=== PATIENT | male | born 1990 | race Two or more races ===

== ENCOUNTER 2023-04-23 23:17 | Inpatient (IN) | payer OTHER ==
[~2023-04-23] VITALS: Ht 160 cm; Wt 81.5 kg
[2023-04-23 23:20] VITALS: PULSE 142; RESP 16; O2SAT 95
[2023-04-23 23:30] VITALS: PULSE 141; RESP 18; O2SAT 95
[2023-04-23] MEDS ORDERED: levETIRAcetam 500 MG/5ML INJ IV ONE (23:33)
[2023-04-23] MEDS ORDERED: PROPOFOL 100 ML IV ONE (23:34)
[2023-04-23] MEDS ORDERED: LORazepam 2MG/ML-1ML VIAL ONE (23:34)
[2023-04-23] MEDS ORDERED: MIDAZOLAM DRIP 50 mg/50mL 50 ML IV ONE (23:35)
[2023-04-23] MEDS: MIDAZOLAM DRIP 50 mg/50mL 50 ML IV SCH (23:40)
[2023-04-23 23:45] LABS: Urine Bacteria FEW /hpf (None Seen); Urine Blood 2+ /uL (Negative); Urine Clarity Clear (Clear); Urine Color Colorless (Yellow); Urine Protein, UAD 1+ (Negative); Urine Specific Gravity 1.013 (1.001-1.035); Urine Urobilinogen Normal (Negative); Urine WBC 1 /hpf (0 - 3)
[2023-04-23] MEDS ORDERED: LORazepam 2MG/ML-1ML VIAL IV ONE (23:45)
[2023-04-23] MEDS ORDERED: PROPOFOL 10 MG/ML 20 ML IV ONE (23:45)
[2023-04-23] MEDS ORDERED: ROCURONIUM 10MG/ML 10ML VIAL IV ONE (23:45)
[2023-04-24] VITALS (68 sets, daily range): BP systolic 115–170; BP diastolic 71–128; PULSE 62–123; RESP 16–20; TEMP 97.9–100.6; O2SAT 70–100
[2023-04-24] MEDS ORDERED: PROPOFOL 100 ML IV ONE (00:26)
[2023-04-24] MEDS: PROPOFOL 100 ML IV SCH ×4 (00:30→22:23)
[2023-04-24] MEDS ORDERED: SODIUM BICARBONATE 8.4 % INJ 50ML VIAL IV ONE (00:45)
[2023-04-24 01:44] LABS: Hematocrit 48.9 % (41.0-53.0); Hemoglobin 15.1 g/dL (13.5-17.5); Mean Corpuscular Hemoglobin 27.8 pg (28.0-32.0); Mean Corpuscular Volume 89.6 fL (80.0-100.0); Red Blood Cells 5.45 10^6/uL (4.5-5.90); Red Cell Distribution Width 13.9 % (11.8-14.3)
[2023-04-24 01:54] LABS: Alanine Aminotransferase 38 U/L (7-40); Albumin 5.4 g/dL (3.2-4.8); Alkaline Phosphatase 73 U/L (46-116); Anion Gap 29.00001 (5-15); Aspartate Aminotransferase 25 U/L (13-40); BUN/Creatinine Ratio 8.6 (10.0-20.0); Bilirubin, Total 0.7 mg/dL (0.2-1.0); Blood Urea Nitrogen 14 mg/dL (9-23); Calcium 9.8 mg/dL (8.7-10.4); Chloride 100 mmol/L (98-107); Glucose 166 mg/dL (74-106); Potassium 3.9 mmol/L (3.5-5.1); Sodium 139 mmol/L (136-145); Total Protein 9.1 g/dL (5.7-8.2)
[2023-04-24 01:58] LABS: Basophils % (manual) 0 (0.0-2.0); Blast Cells 0; Monocytes % (manual) 0 (0-12); Promyelocytes % 0; Reactive Lymphocytes 0
[2023-04-24 02:13] LABS: Phenytoin (Dilantin) < 2.0 ug/mL (10-20)
[2023-04-24 02:14] LABS: Valproic Acid (Depakene) < 3.0 ug/mL (50-100)
[2023-04-24 02:19] LABS: Carbon Dioxide < 10 mmol/L (20-30)
[2023-04-24] MEDS: MIDAZOLAM DRIP 50 mg/50mL 50 ML IV SCH ×5 (02:45→23:13)
[2023-04-24] MEDS ORDERED: LACTATED RINGER'S 2,000 ML IV ONE (03:00)
[2023-04-24] MEDS ORDERED: LORazepam 2MG/ML-1ML VIAL IV PRN (05:00)
[2023-04-24] MEDS ORDERED: SODIUM CHLORIDE 0.9% 1,000 ML IV SCH (05:00)
[2023-04-24] MEDS ORDERED: NITROGLYCERIN 0.4 MG SL TAB SL PRN (05:00)
[2023-04-24] MEDS ORDERED: ACETAMINOPHEN 650 MG RECT SUPP PR PRN (05:00)
[2023-04-24] MEDS ORDERED: MORPHINE SULFATE INJ 2 MG/ml SYRG IV PRN (05:00)
[2023-04-24] MEDS ORDERED: VANCOMYCIN PER PHARMACY 0 MG IV SCH (05:00)
[2023-04-24] MEDS ORDERED: ONDANSETRON HCL 4 MG/2 ML VIAL IV PRN (05:00)
[2023-04-24] MEDS ORDERED: VANCOMYCIN 1GM/250ML 250 ML IV ONE (05:00)
[2023-04-24 05:35] LABS: Basophils # (auto) 0.1 10 ^3/uL (0-0.2); Basophils % (auto) 0.6 % (0.0-2.0); Eosinophils # (auto) 0 10 ^3/uL (0-0.8); Eosinophils % (auto) 0.3 % (0.0-7.0); Hematocrit 39.2 % (41.0-53.0); Hemoglobin 13.1 g/dL (13.5-17.5); Lymphocytes # (auto) 2.2 10 ^3/uL (0.4-5.4); Lymphocytes % (auto) 20.6 % (10.0-50.0); Mean Corpuscular Hemoglobin 27.8 pg (28.0-32.0); Mean Corpuscular Hgb Conc. 33.4 g/dL (32.0-36.0); Mean Corpuscular Volume 83.2 fL (80.0-100.0); Monocytes # (auto) 1.3 10 ^3/uL (0-1.3); Monocytes % (auto) 12.3 % (0.0-12.0); Neutrophils # (auto) 7.2 10 ^3/uL (1.6-8.6); Neutrophils % (auto) 66.2 % (37.0-80.0); Red Blood Cells 4.71 10^6/uL (4.5-5.90); Red Cell Distribution Width 13.5 % (11.8-14.3); White Blood Cell 10.8 10^3/uL (4.4-10.8)
[2023-04-24 05:49] LABS: Alanine Aminotransferase 30 U/L (7-40); Albumin 4.3 g/dL (3.2-4.8); Alkaline Phosphatase 52 U/L (46-116); Anion Gap 8 (5-15); Aspartate Aminotransferase 20 U/L (13-40); BUN/Creatinine Ratio 9.4 (10.0-20.0); Blood Urea Nitrogen 16 mg/dL (9-23); Calcium 8.9 mg/dL (8.7-10.4); Carbon Dioxide 28 mmol/L (20-30); Chloride 103 mmol/L (98-107); Glucose 170 mg/dL (74-106); Potassium 3.6 mmol/L (3.5-5.1); Sodium 139 mmol/L (136-145)
[2023-04-24 05:50] LABS: Bilirubin, Total 0.7 mg/dL (0.2-1.0); Total Protein 7.1 g/dL (5.7-8.2)
[2023-04-24 06:00] LABS: Band Neutrophils % (manual) 9; Eosinophils % (manual) 1 (0-7); Lymphocytes % (manual) 45 (10.0-50.0); Metamyelocytes % 6; Myelocytes % 7
[2023-04-24] MEDS ORDERED: cefTRIAXone 1GM/50ML D5W 50 ML IV SCH (06:00)
[2023-04-24 06:01] LABS: Platelet Estimate Adequate
[2023-04-24 07:27] LABS: Amphetamine Screen, Urine Neg (NEGATIVE); Barbiturate Scree,Urine Neg (NEGATIVE); Benzodiazephine Screen, Urine Neg (NEGATIVE); Cocaine Screen, Urine Neg (NEGATIVE)
[2023-04-24 07:28] LABS: Cannabinoid Screen, Urine Neg (NEGATIVE); Opiate Scree,Urine Neg (NEGATIVE); Phencyclidine Screen, Urine Neg (NEGATIVE)
[2023-04-24] MEDS ORDERED: POTASSIUM EFFERVESENT TAB 25 MEQ PO ONE (07:45)
[2023-04-24] MEDS: FAMOTIDINE (10MG/ML) 2ML VL IV SCH ×2 (07:51→22:24)
[2023-04-24] MEDS: HEPARIN SODIUM (PORCINE) 5000 UNITS/ML 1ML VIAL SC SCH ×2 (07:52→22:31)
[2023-04-24 10:48] LABS: INR 1.08 (0.9-1.15); Partial Thromboplastin Time 26.2 SEC (24.5-34.5); Prothrombin Time 11.3 sec (9.3-11.8)
[2023-04-24] MEDS: SODIUM CHLORIDE 0.9% 1,000 ML IV SCH ×2 (11:28→17:03)
[2023-04-24 11:30] LABS: Base Excess 0.2 mmol/L (-2.0-2.0)
[2023-04-24 11:58] LABS: Phosphorus 4.4 mg/dL (2.4-5.1)
[2023-04-24 12:07] LABS: Protein, Urine 61.5 mg/dL (0.0-11.9)
[2023-04-24 12:10] LABS: Creatinine, Urine 47.61 mg/dL (30.0-125.0); Urine Protein/Creatinine Ratio 1.29
[2023-04-24] MEDS ORDERED: lamoTRIgine 100 MG TAB NG ONE (12:15)
[2023-04-24] MEDS ORDERED: LIDOCAINE 1% (LOCAL ANESTH.) PF 5ml SDV ID ONE (15:00)
[2023-04-24] MEDS: ACETAMINOPHEN 650 mg PER 20.3 mL UD NG PRN (16:57)
[2023-04-24] MEDS: SODIUM CHLOR 0.9% PF (SALINE LOCK) 10ML VIAL/SYR IV SCH (22:24)
[2023-04-24] MEDS: lamoTRIgine 100 MG TAB NG SCH (22:28)
[2023-04-25] VITALS (108 sets, daily range): BP systolic 114–185; BP diastolic 77–128; PULSE 65–127; RESP 14–28; TEMP 97.9–100.2; O2SAT 94–100
[2023-04-25] MEDS: SODIUM CHLORIDE 0.9% 1,000 ML IV SCH ×3 (01:05→19:00)
[2023-04-25] MEDS: PROPOFOL 100 ML IV SCH ×5 (03:03→21:45)
[2023-04-25 04:16] LABS: Basophils # (auto) 0 10 ^3/uL (0-0.2); Basophils % (auto) 0.6 % (0.0-2.0); Eosinophils # (auto) 0.1 10 ^3/uL (0-0.8); Eosinophils % (auto) 1.9 % (0.0-7.0); Hematocrit 32.5 % (41.0-53.0); Hemoglobin 11.1 g/dL (13.5-17.5); Lymphocytes # (auto) 1.5 10 ^3/uL (0.4-5.4); Lymphocytes % (auto) 20.8 % (10.0-50.0); Mean Corpuscular Hemoglobin 28.8 pg (28.0-32.0); Mean Corpuscular Hgb Conc. 34.1 g/dL (32.0-36.0); Mean Corpuscular Volume 84.5 fL (80.0-100.0); Monocytes % (auto) 14.4 % (0.0-12.0); Neutrophils # (auto) 4.5 10 ^3/uL (1.6-8.6); Neutrophils % (auto) 62.3 % (37.0-80.0); Nucleated Red Blood Cells % 0.1 %; Red Blood Cells 3.85 10^6/uL (4.5-5.90); Red Cell Distribution Width 13.6 % (11.8-14.3); White Blood Cell 7.2 10^3/uL (4.4-10.8)
[2023-04-25 04:32] LABS: Alanine Aminotransferase 20 U/L (7-40); Albumin 2.8 g/dL (3.2-4.8); Alkaline Phosphatase 40 U/L (46-116); Anion Gap 7 (5-15); BUN/Creatinine Ratio 7.1 (10.0-20.0); Bilirubin, Total 0.7 mg/dL (0.2-1.0); Blood Urea Nitrogen 18 mg/dL (9-23); Calcium 6.4 mg/dL (8.7-10.4); Carbon Dioxide 21 mmol/L (20-30); Glucose 102 mg/dL (74-106); Magnesium 1.9 mg/dL (1.6-2.6); Potassium 3.1 mmol/L (3.5-5.1); Sodium 143 mmol/L (136-145); Total Protein 4.6 g/dL (5.7-8.2)
[2023-04-25 04:38] LABS: Aspartate Aminotransferase 29 U/L (13-40)
[2023-04-25 04:41] LABS: Chloride 115 mmol/L (98-107)
[2023-04-25] MEDS: MIDAZOLAM DRIP 50 mg/50mL 50 ML IV SCH ×4 (04:42→19:25)
[2023-04-25 06:56] LABS: Base Excess -1.7 mmol/L (-2.0-2.0)
[2023-04-25] MEDS ORDERED: POTASSIUM EFFERVESENT TAB 25 MEQ GT ONE (08:45)
[2023-04-25] MEDS ORDERED: LACTATED RINGER'S 1,000 ML IV ONE (08:45)
[2023-04-25] MEDS ORDERED: VANCOMYCIN 1GM/250ML 250 ML IV ONE (09:00)
[2023-04-25] MEDS ORDERED: VANCOMYCIN PER PHARMACY 0 MG IV SCH (09:00)
[2023-04-25] MEDS ORDERED: cefTRIAXone 1GM/50ML D5W 50 ML IV SCH (09:00)
[2023-04-25] MEDS: ACETAMINOPHEN 650 mg PER 20.3 mL UD NG PRN ×2 (09:01→18:04)
[2023-04-25] MEDS: LINEZOLID 600MG/300ML 300 ML IV SCH ×2 (10:25→23:01)
[2023-04-25] MEDS: lamoTRIgine 100 MG TAB NG SCH ×2 (10:25→22:16)
[2023-04-25] MEDS: FAMOTIDINE (10MG/ML) 2ML VL IV SCH ×2 (10:25→22:16)
[2023-04-25] MEDS: SODIUM CHLOR 0.9% PF (SALINE LOCK) 10ML VIAL/SYR IV SCH ×2 (10:25→22:16)
[2023-04-25] MEDS: HEPARIN SODIUM (PORCINE) 5000 UNITS/ML 1ML VIAL SC SCH ×2 (10:29→22:17)
[2023-04-25] MEDS: CEFEPIME 2GM/50ML NS 50 ML IV SCH ×2 (13:54→23:02)
[2023-04-25 16:24] LABS: Creatinine, Urine 36.07 mg/dL (30.0-125.0)
[2023-04-25 16:49] LABS: Urine Bacteria FEW /hpf (None Seen); Urine Blood Negative /uL (Negative); Urine Clarity Clear (Clear); Urine Color Colorless (Yellow); Urine Mucus FEW (None Seen); Urine Protein, UAD Negative (Negative); Urine Specific Gravity 1.008 (1.001-1.035); Urine Urobilinogen Normal (Negative); Urine WBC 18 /hpf (0 - 3)
[2023-04-25] MEDS: hydrALAZINE HCL 20 MG/ML VL IV PRN (17:12)
[2023-04-26] VITALS (108 sets, daily range): BP systolic 85–161; BP diastolic 47–117; PULSE 62–115; RESP 19–22; TEMP 97.7–99.5; O2SAT 95–100
[2023-04-26] MEDS: MIDAZOLAM DRIP 50 mg/50mL 50 ML IV SCH ×6 (00:09→23:22)
[2023-04-26] MEDS: SODIUM CHLORIDE 0.9% 1,000 ML IV SCH ×4 (02:25→20:51)
[2023-04-26] MEDS: PROPOFOL 100 ML IV SCH ×4 (04:22→20:37)
[2023-04-26 04:28] LABS: Basophils # (auto) 0.1 10 ^3/uL (0-0.2); Basophils % (auto) 0.9 % (0.0-2.0); Eosinophils # (auto) 0.2 10 ^3/uL (0-0.8); Eosinophils % (auto) 2.8 % (0.0-7.0); Hematocrit 37.1 % (41.0-53.0); Hemoglobin 12.6 g/dL (13.5-17.5); Lymphocytes % (auto) 26.1 % (10.0-50.0); Mean Corpuscular Hemoglobin 28.7 pg (28.0-32.0); Mean Corpuscular Volume 84.4 fL (80.0-100.0); Monocytes # (auto) 1.1 10 ^3/uL (0-1.3); Monocytes % (auto) 13.8 % (0.0-12.0); Neutrophils # (auto) 4.4 10 ^3/uL (1.6-8.6); Neutrophils % (auto) 56.4 % (37.0-80.0); Nucleated Red Blood Cells % 0.1 %; Red Cell Distribution Width 13.9 % (11.8-14.3); White Blood Cell 7.8 10^3/uL (4.4-10.8)
[2023-04-26 04:46] LABS: Alanine Aminotransferase 22 U/L (7-40); Albumin 3.4 g/dL (3.2-4.8); Alkaline Phosphatase 55 U/L (46-116); Anion Gap 8 (5-15); BUN/Creatinine Ratio 6.1 (10.0-20.0); Blood Urea Nitrogen 19 mg/dL (9-23); Calcium 7.9 mg/dL (8.7-10.4); Carbon Dioxide 22 mmol/L (20-30); Chloride 110 mmol/L (98-107); Glucose 151 mg/dL (74-106); Magnesium 2.6 mg/dL (1.6-2.6); Potassium 4.1 mmol/L (3.5-5.1); Sodium 140 mmol/L (136-145)
[2023-04-26 04:47] LABS: Bilirubin, Total 0.5 mg/dL (0.2-1.0); Total Protein 5.8 g/dL (5.7-8.2)
[2023-04-26 06:08] LABS: Aspartate Aminotransferase 35 U/L (13-40)
[2023-04-26] MEDS: CEFEPIME 2GM/50ML NS 50 ML IV SCH ×2 (06:25→13:45)
[2023-04-26 06:44] LABS: Base Excess -2.2 mmol/L (-2.0-2.0)
[2023-04-26] MEDS ORDERED: LORazepam 2MG/ML-1ML VIAL IV PRN (10:15)
[2023-04-26] MEDS: lamoTRIgine 100 MG TAB NG SCH ×2 (10:28→22:10)
[2023-04-26] MEDS: LINEZOLID 600MG/300ML 300 ML IV SCH ×2 (10:28→22:10)
[2023-04-26] MEDS: FAMOTIDINE (10MG/ML) 2ML VL IV SCH ×2 (10:28→22:10)
[2023-04-26] MEDS: hydrALAZINE HCL 20 MG/ML VL IV PRN (10:29)
[2023-04-26] MEDS: SODIUM CHLOR 0.9% PF (SALINE LOCK) 10ML VIAL/SYR IV SCH ×2 (10:30→22:10)
[2023-04-26] MEDS: HEPARIN SODIUM (PORCINE) 5000 UNITS/ML 1ML VIAL SC SCH ×2 (10:43→22:12)
[2023-04-26] MEDS ORDERED: FUROSEMIDE 100 MG/10ML VIAL IV ONE (11:00)
[2023-04-26] MEDS: ACETAMINOPHEN 650 mg PER 20.3 mL UD NG PRN (15:18)
[2023-04-26] MEDS: NOREPINEPHRINE 8 MG/250ML KIT 250 ML IV SCH (16:00)
[2023-04-27] VITALS (104 sets, daily range): BP systolic 92–161; BP diastolic 52–113; PULSE 59–90; RESP 20–25; TEMP 97.2–100; O2SAT 93–100
[2023-04-27] MEDS: hydrALAZINE HCL 20 MG/ML VL IV PRN (02:18)
[2023-04-27] MEDS: CEFEPIME 2GM/50ML NS 50 ML IV SCH ×2 (02:21→15:00)
[2023-04-27] MEDS: PROPOFOL 100 ML IV SCH ×4 (02:54→22:29)
[2023-04-27] MEDS: MIDAZOLAM DRIP 50 mg/50mL 50 ML IV SCH ×5 (03:43→19:41)
[2023-04-27 04:12] LABS: Basophils # (auto) 0.1 10 ^3/uL (0-0.2); Basophils % (auto) 0.9 % (0.0-2.0); Eosinophils # (auto) 0.3 10 ^3/uL (0-0.8); Eosinophils % (auto) 4.8 % (0.0-7.0); Hematocrit 39.9 % (41.0-53.0); Hemoglobin 13.4 g/dL (13.5-17.5); Lymphocytes # (auto) 1.8 10 ^3/uL (0.4-5.4); Lymphocytes % (auto) 28.7 % (10.0-50.0); Mean Corpuscular Hemoglobin 28.2 pg (28.0-32.0); Mean Corpuscular Hgb Conc. 33.5 g/dL (32.0-36.0); Mean Corpuscular Volume 84.3 fL (80.0-100.0); Monocytes # (auto) 0.8 10 ^3/uL (0-1.3); Monocytes % (auto) 12.9 % (0.0-12.0); Neutrophils # (auto) 3.4 10 ^3/uL (1.6-8.6); Neutrophils % (auto) 52.7 % (37.0-80.0); Nucleated Red Blood Cells % 0.1 %; Red Blood Cells 4.73 10^6/uL (4.5-5.90); White Blood Cell 6.4 10^3/uL (4.4-10.8)
[2023-04-27 04:35] LABS: Alanine Aminotransferase 20 U/L (7-40); Albumin 4.1 g/dL (3.2-4.8); Alkaline Phosphatase 69 U/L (46-116); Anion Gap 12 (5-15); BUN/Creatinine Ratio 6.9 (10.0-20.0); Bilirubin, Total 0.5 mg/dL (0.2-1.0); Blood Urea Nitrogen 19 mg/dL (9-23); Calcium 8.3 mg/dL (8.7-10.4); Carbon Dioxide 21 mmol/L (20-30); Chloride 108 mmol/L (98-107); Glucose 138 mg/dL (74-106); Magnesium 2.2 mg/dL (1.6-2.6); Potassium 3.4 mmol/L (3.5-5.1); Sodium 141 mmol/L (136-145); Total Protein 6.6 g/dL (5.7-8.2)
[2023-04-27 04:45] LABS: Aspartate Aminotransferase 23 U/L (13-40)
[2023-04-27] MEDS: SODIUM CHLORIDE 0.9% 1,000 ML IV SCH ×3 (04:48→22:13)
[2023-04-27 07:22] LABS: Base Excess -3.7 mmol/L (-2.0-2.0)
[2023-04-27] MEDS ORDERED: ONDANSETRON HCL 4 MG/2 ML VIAL IV PRN (08:45)
[2023-04-27] MEDS ORDERED: POTASSIUM CHL 20MEQ/100ML 100 ML IV ONE (08:45)
[2023-04-27] MEDS: FAMOTIDINE (10MG/ML) 2ML VL IV SCH ×2 (10:20→22:11)
[2023-04-27] MEDS: lamoTRIgine 100 MG TAB NG SCH ×2 (10:21→22:12)
[2023-04-27] MEDS: HEPARIN SODIUM (PORCINE) 5000 UNITS/ML 1ML VIAL SC SCH ×2 (10:29→22:30)
[2023-04-27] MEDS: SODIUM CHLOR 0.9% PF (SALINE LOCK) 10ML VIAL/SYR IV SCH ×2 (10:31→22:12)
[2023-04-27] MEDS: LINEZOLID 600MG/300ML 300 ML IV SCH ×2 (10:51→22:12)
[2023-04-27] MEDS: NOREPINEPHRINE 8 MG/250ML KIT 250 ML IV SCH (17:47)
[2023-04-27] MEDS: ACETAMINOPHEN 650 mg PER 20.3 mL UD NG PRN (22:21)
[2023-04-28] VITALS (107 sets, daily range): BP systolic 100–172; BP diastolic 58–119; PULSE 60–116; RESP 18–24; TEMP 97.9–99.7; O2SAT 91–100
[2023-04-28] MEDS: PROPOFOL 100 ML IV SCH ×6 (00:09→22:41)
[2023-04-28] MEDS: hydrALAZINE HCL 20 MG/ML VL IV PRN ×3 (01:50→20:09)
[2023-04-28] MEDS: CEFEPIME 2GM/50ML NS 50 ML IV SCH ×2 (02:43→12:12)
[2023-04-28] MEDS: MIDAZOLAM DRIP 50 mg/50mL 50 ML IV SCH ×5 (05:00→22:35)
[2023-04-28 05:15] LABS: Basophils # (auto) 0 10 ^3/uL (0-0.2); Basophils % (auto) 0.6 % (0.0-2.0); Eosinophils # (auto) 0.2 10 ^3/uL (0-0.8); Eosinophils % (auto) 3.2 % (0.0-7.0); Hematocrit 40.7 % (41.0-53.0); Hemoglobin 13.5 g/dL (13.5-17.5); Lymphocytes # (auto) 1.8 10 ^3/uL (0.4-5.4); Lymphocytes % (auto) 24.6 % (10.0-50.0); Mean Corpuscular Hemoglobin 27.8 pg (28.0-32.0); Mean Corpuscular Hgb Conc. 33.1 g/dL (32.0-36.0); Monocytes # (auto) 0.8 10 ^3/uL (0-1.3); Monocytes % (auto) 11.2 % (0.0-12.0); Neutrophils # (auto) 4.4 10 ^3/uL (1.6-8.6); Neutrophils % (auto) 60.4 % (37.0-80.0); Red Blood Cells 4.84 10^6/uL (4.5-5.90); Red Cell Distribution Width 14.1 % (11.8-14.3); White Blood Cell 7.3 10^3/uL (4.4-10.8)
[2023-04-28 05:32] LABS: Alanine Aminotransferase 24 U/L (7-40); Albumin 4.4 g/dL (3.2-4.8); Alkaline Phosphatase 100 U/L (46-116); Anion Gap 10 (5-15); Aspartate Aminotransferase 29 U/L (13-40); Bilirubin, Total 0.5 mg/dL (0.2-1.0); Blood Urea Nitrogen 17 mg/dL (9-23); Calcium 8.7 mg/dL (8.7-10.4); Carbon Dioxide 21 mmol/L (20-30); Chloride 114 mmol/L (98-107); Glucose 93 mg/dL (74-106); Magnesium 1.7 mg/dL (1.6-2.6); Sodium 145 mmol/L (136-145); Total Protein 7.1 g/dL (5.7-8.2)
[2023-04-28] MEDS: SODIUM CHLOR 0.9% PF (SALINE LOCK) 10ML VIAL/SYR IV SCH ×2 (07:18→22:24)
[2023-04-28 07:51] LABS: Base Excess -4.3 mmol/L (-2.0-2.0)
[2023-04-28] MEDS: SODIUM CHLORIDE 0.9% 1,000 ML IV SCH ×2 (08:16→17:36)
[2023-04-28] MEDS: FAMOTIDINE (10MG/ML) 2ML VL IV SCH (08:16)
[2023-04-28] MEDS: HEPARIN SODIUM (PORCINE) 5000 UNITS/ML 1ML VIAL SC SCH ×2 (08:17→22:26)
[2023-04-28] MEDS: lamoTRIgine 100 MG TAB NG SCH ×2 (08:17→22:25)
[2023-04-28] MEDS: LINEZOLID 600MG/300ML 300 ML IV SCH ×2 (08:59→22:25)
[2023-04-28] MEDS: NOREPINEPHRINE 8 MG/250ML KIT 250 ML IV SCH (10:11)
[2023-04-28] MEDS ORDERED: LAMO150T26 PO (16:40)
[2023-04-28] MEDS ORDERED: HYDR50TA69 PO (16:40)
[2023-04-28] MEDS ORDERED: PAR20T PO (16:40)
[2023-04-28] MEDS: ACETAMINOPHEN 650 mg PER 20.3 mL UD NG PRN (17:29)
[2023-04-29] VITALS (107 sets, daily range): BP systolic 107–179; BP diastolic 66–129; PULSE 52–138; RESP 14–29; TEMP 97.3–100.4; O2SAT 92–100
[2023-04-29] MEDS: fentaNYL Drip 2500mCg/250mlNS 250 ML IV SCH (00:45)
[2023-04-29] MEDS: MIDAZOLAM DRIP 50 mg/50mL 50 ML IV SCH ×3 (01:50→19:30)
[2023-04-29] MEDS: PROPOFOL 100 ML IV SCH ×5 (01:51→22:16)
[2023-04-29] MEDS: CEFEPIME 2GM/50ML NS 50 ML IV SCH ×2 (03:56→12:54)
[2023-04-29 04:38] LABS: Basophils # (auto) 0.1 10 ^3/uL (0-0.2); Basophils % (auto) 1.1 % (0.0-2.0); Eosinophils # (auto) 0.4 10 ^3/uL (0-0.8); Eosinophils % (auto) 6.2 % (0.0-7.0); Hematocrit 38.4 % (41.0-53.0); Hemoglobin 12.8 g/dL (13.5-17.5); Lymphocytes # (auto) 2.3 10 ^3/uL (0.4-5.4); Lymphocytes % (auto) 35.6 % (10.0-50.0); Mean Corpuscular Hemoglobin 28.2 pg (28.0-32.0); Mean Corpuscular Hgb Conc. 33.3 g/dL (32.0-36.0); Mean Corpuscular Volume 84.6 fL (80.0-100.0); Monocytes # (auto) 0.8 10 ^3/uL (0-1.3); Monocytes % (auto) 12.6 % (0.0-12.0); Neutrophils # (auto) 2.9 10 ^3/uL (1.6-8.6); Neutrophils % (auto) 44.5 % (37.0-80.0); Nucleated Red Blood Cells % 0.1 %; Red Blood Cells 4.54 10^6/uL (4.5-5.90); Red Cell Distribution Width 14.2 % (11.8-14.3); White Blood Cell 6.4 10^3/uL (4.4-10.8)
[2023-04-29] MEDS: SODIUM CHLORIDE 0.9% 1,000 ML IV SCH ×3 (04:42→23:12)
[2023-04-29 04:58] LABS: Alanine Aminotransferase 30 U/L (7-40); Albumin 4.2 g/dL (3.2-4.8); Alkaline Phosphatase 106 U/L (46-116); Anion Gap 7 (5-15); Bilirubin, Total 0.4 mg/dL (0.2-1.0); Blood Urea Nitrogen 14 mg/dL (9-23); Calcium 8.8 mg/dL (8.7-10.4); Carbon Dioxide 23 mmol/L (20-30); Chloride 114 mmol/L (98-107); Glucose 86 mg/dL (74-106); Magnesium 1.7 mg/dL (1.6-2.6); Potassium 3.9 mmol/L (3.5-5.1); Sodium 144 mmol/L (136-145); Total Protein 6.8 g/dL (5.7-8.2)
[2023-04-29 05:41] LABS: Aspartate Aminotransferase 33 U/L (13-40)
[2023-04-29] MEDS: hydrALAZINE HCL 20 MG/ML VL IV PRN (05:57)
[2023-04-29] MEDS: SODIUM CHLOR 0.9% PF (SALINE LOCK) 10ML VIAL/SYR IV SCH ×2 (07:10→21:27)
[2023-04-29] MEDS: NOREPINEPHRINE 8 MG/250ML KIT 250 ML IV SCH (07:11)
[2023-04-29] MEDS: lamoTRIgine 100 MG TAB NG SCH ×2 (07:50→21:27)
[2023-04-29] MEDS: FAMOTIDINE (10MG/ML) 2ML VL IV SCH (07:50)
[2023-04-29] MEDS: LINEZOLID 600MG/300ML 300 ML IV SCH ×2 (07:51→22:07)
[2023-04-29] MEDS: HEPARIN SODIUM (PORCINE) 5000 UNITS/ML 1ML VIAL SC SCH ×2 (07:51→21:29)
[2023-04-29 13:26] LABS: Base Excess -3.6 mmol/L (-2.0-2.0)
[2023-04-30] VITALS (44 sets, daily range): BP systolic 125–175; BP diastolic 90–116; PULSE 52–115; RESP 13–23; TEMP 97.3–99.7; O2SAT 92–100
[2023-04-30] MEDS: MIDAZOLAM DRIP 50 mg/50mL 50 ML IV SCH ×4 (00:30→15:21)
[2023-04-30] MEDS: fentaNYL Drip 2500mCg/250mlNS 250 ML IV SCH (00:45)
[2023-04-30] MEDS: CEFEPIME 2GM/50ML NS 50 ML IV SCH ×2 (02:17→16:07)
[2023-04-30 04:15] LABS: Basophils # (auto) 0.1 10 ^3/uL (0-0.2); Basophils % (auto) 0.7 % (0.0-2.0); Eosinophils # (auto) 0.4 10 ^3/uL (0-0.8); Eosinophils % (auto) 6.2 % (0.0-7.0); Hematocrit 37.7 % (41.0-53.0); Hemoglobin 12.6 g/dL (13.5-17.5); Lymphocytes # (auto) 1.8 10 ^3/uL (0.4-5.4); Lymphocytes % (auto) 24.7 % (10.0-50.0); Mean Corpuscular Hgb Conc. 33.3 g/dL (32.0-36.0); Mean Corpuscular Volume 83.8 fL (80.0-100.0); Monocytes # (auto) 0.9 10 ^3/uL (0-1.3); Monocytes % (auto) 12.1 % (0.0-12.0); Neutrophils % (auto) 56.3 % (37.0-80.0); Red Cell Distribution Width 14.1 % (11.8-14.3); White Blood Cell 7.2 10^3/uL (4.4-10.8)
[2023-04-30 04:24] LABS: Alanine Aminotransferase 66 U/L (7-40); Albumin 3.8 g/dL (3.2-4.8); Alkaline Phosphatase 117 U/L (46-116); Anion Gap 10 (5-15); Aspartate Aminotransferase 75 U/L (13-40); BUN/Creatinine Ratio 8.3 (10.0-20.0); Bilirubin, Total 0.5 mg/dL (0.2-1.0); Blood Urea Nitrogen 12 mg/dL (9-23); Carbon Dioxide 21 mmol/L (20-30); Chloride 113 mmol/L (98-107); Glucose 130 mg/dL (74-106); Magnesium 1.6 mg/dL (1.6-2.6); Potassium 3.6 mmol/L (3.5-5.1); Sodium 144 mmol/L (136-145)
[2023-04-30] MEDS: hydrALAZINE HCL 20 MG/ML VL IV PRN (06:27)
[2023-04-30] MEDS: SODIUM CHLOR 0.9% PF (SALINE LOCK) 10ML VIAL/SYR IV SCH ×2 (10:07→21:20)
[2023-04-30] MEDS: FAMOTIDINE (10MG/ML) 2ML VL IV SCH (10:07)
[2023-04-30] MEDS: HEPARIN SODIUM (PORCINE) 5000 UNITS/ML 1ML VIAL SC SCH ×2 (10:08→21:30)
[2023-04-30] MEDS: LINEZOLID 600MG/300ML 300 ML IV SCH ×2 (10:11→21:30)
[2023-04-30] MEDS: lamoTRIgine 100 MG TAB NG SCH ×2 (11:05→21:22)
[2023-04-30] MEDS: PROMETHAZINE HCL 25 MG/ML 1ML IV PRN (12:30)
[2023-04-30] MEDS: SODIUM CHLORIDE 0.9% 1,000 ML IV SCH (12:45)
[2023-04-30] MEDS: NOREPINEPHRINE 8 MG/250ML KIT 250 ML IV SCH (15:21)
[2023-04-30] MEDS ORDERED: amLODIPine BESYLATE 5 MG TAB PO ONE (16:00)
[2023-04-30] MEDS: ACETAMINOPHEN 650 mg PER 20.3 mL UD NG PRN ×2 (16:07→21:49)
[2023-05-01] VITALS (13 sets, daily range): BP systolic 129–151; BP diastolic 88–106; PULSE 82–105; RESP 13–20; TEMP 98.5–99; O2SAT 93–98
[2023-05-01] MEDS: SODIUM CHLORIDE 0.9% 1,000 ML IV SCH ×2 (00:09→08:45)
[2023-05-01] MEDS: CEFEPIME 2GM/50ML NS 50 ML IV SCH (01:53)
[2023-05-01 04:00] LABS: Basophils # (auto) 0.1 10 ^3/uL (0-0.2); Eosinophils # (auto) 0.2 10 ^3/uL (0-0.8); Eosinophils % (auto) 3.4 % (0.0-7.0); Hematocrit 38.7 % (41.0-53.0); Lymphocytes # (auto) 1.6 10 ^3/uL (0.4-5.4); Lymphocytes % (auto) 21.7 % (10.0-50.0); Mean Corpuscular Hgb Conc. 33.5 g/dL (32.0-36.0); Mean Corpuscular Volume 83.8 fL (80.0-100.0); Monocytes % (auto) 12.9 % (0.0-12.0); Neutrophils # (auto) 4.5 10 ^3/uL (1.6-8.6); Red Blood Cells 4.62 10^6/uL (4.5-5.90); Red Cell Distribution Width 13.7 % (11.8-14.3); White Blood Cell 7.4 10^3/uL (4.4-10.8)
[2023-05-01 04:16] LABS: Alanine Aminotransferase 105 U/L (7-40); Albumin 4.5 g/dL (3.2-4.8); Alkaline Phosphatase 113 U/L (46-116); Anion Gap 9 (5-15); Aspartate Aminotransferase 100 U/L (13-40); BUN/Creatinine Ratio 8.6 (10.0-20.0); Bilirubin, Total 0.9 mg/dL (0.2-1.0); Blood Urea Nitrogen 10 mg/dL (9-23); Calcium 9.4 mg/dL (8.7-10.4); Carbon Dioxide 24 mmol/L (20-30); Chloride 108 mmol/L (98-107); Glucose 106 mg/dL (74-106); Potassium 3.6 mmol/L (3.5-5.1); Sodium 141 mmol/L (136-145)
[2023-05-01] MEDS: PROMETHAZINE HCL 25 MG/ML 1ML IV PRN (06:46)
[2023-05-01] MEDS: amLODIPine BESYLATE 5 MG TAB PO SCH (07:58)
[2023-05-01] MEDS: LINEZOLID 600MG/300ML 300 ML IV SCH (07:58)
[2023-05-01] MEDS: FAMOTIDINE (10MG/ML) 2ML VL IV SCH (07:58)
[2023-05-01] MEDS: lamoTRIgine 100 MG TAB NG SCH ×2 (07:59→22:03)
[2023-05-01] MEDS: HEPARIN SODIUM (PORCINE) 5000 UNITS/ML 1ML VIAL SC SCH ×2 (08:09→22:07)
[2023-05-01] MEDS: SODIUM CHLOR 0.9% PF (SALINE LOCK) 10ML VIAL/SYR IV SCH ×2 (10:50→22:03)
[2023-05-01] MEDS: levETIRAcetam 500 MG TAB PO SCH ×2 (10:50→22:03)
[2023-05-01] MEDS: MELATONIN 5 MG TAB PO SCH (22:04)
[2023-05-02] VITALS (19 sets, daily range): BP systolic 125–151; BP diastolic 84–101; PULSE 80–103; RESP 12–25; TEMP 97.9–98.9; O2SAT 89–98
[2023-05-02 07:58] LABS: Basophils # (auto) 0.1 10 ^3/uL (0-0.2); Eosinophils # (auto) 0.3 10 ^3/uL (0-0.8); Eosinophils % (auto) 4.4 % (0.0-7.0); Hematocrit 39.5 % (41.0-53.0); Hemoglobin 13.3 g/dL (13.5-17.5); Lymphocytes % (auto) 30.1 % (10.0-50.0); Mean Corpuscular Hemoglobin 27.6 pg (28.0-32.0); Mean Corpuscular Hgb Conc. 33.7 g/dL (32.0-36.0); Mean Corpuscular Volume 81.9 fL (80.0-100.0); Monocytes # (auto) 0.9 10 ^3/uL (0-1.3); Monocytes % (auto) 13.2 % (0.0-12.0); Neutrophils # (auto) 3.5 10 ^3/uL (1.6-8.6); Neutrophils % (auto) 51.3 % (37.0-80.0); Red Blood Cells 4.82 10^6/uL (4.5-5.90); Red Cell Distribution Width 13.3 % (11.8-14.3); White Blood Cell 6.8 10^3/uL (4.4-10.8)
[2023-05-02 08:15] LABS: Alanine Aminotransferase 94 U/L (7-40); Albumin 4.4 g/dL (3.2-4.8); Alkaline Phosphatase 92 U/L (46-116); Aspartate Aminotransferase 64 U/L (13-40); BUN/Creatinine Ratio 12.2 (10.0-20.0); Bilirubin, Total 1.3 mg/dL (0.2-1.0); Blood Urea Nitrogen 12 mg/dL (9-23); Calcium 9.6 mg/dL (8.5-10.1); Carbon Dioxide 29 mmol/L (20-30); Glucose 105 mg/dL (74-106); Total Protein 7.7 g/dL (5.7-8.2)
[2023-05-02 10:03] LABS: Anion Gap 8 (5-15); Chloride 105 mmol/L (98-107); Potassium 3.6 mmol/L (3.5-5.1); Sodium 142 mmol/L (136-145)
[2023-05-02] MEDS: levoFLOXacin 750MG 150 ML IV SCH (10:05)
[2023-05-02] MEDS: levETIRAcetam 500 MG TAB PO SCH ×2 (10:07→22:02)
[2023-05-02] MEDS: lamoTRIgine 100 MG TAB NG SCH ×2 (10:08→22:02)
[2023-05-02] MEDS: amLODIPine BESYLATE 5 MG TAB PO SCH (10:08)
[2023-05-02] MEDS: SODIUM CHLOR 0.9% PF (SALINE LOCK) 10ML VIAL/SYR IV SCH ×2 (10:08→22:01)
[2023-05-02] MEDS: HEPARIN SODIUM (PORCINE) 5000 UNITS/ML 1ML VIAL SC SCH ×2 (10:11→22:10)
[2023-05-02] MEDS: MEROPENEM 1GM IVPB 100 ML IV SCH ×2 (14:02→22:01)
[2023-05-02] MEDS: MELATONIN 5 MG TAB PO SCH (22:02)
[2023-05-03] VITALS (15 sets, daily range): BP systolic 110–135; BP diastolic 76–95; PULSE 82–109; RESP 16–20; TEMP 97.7–98.9; O2SAT 90–96
[2023-05-03 04:46] LABS: Basophils # (auto) 0.1 10 ^3/uL (0-0.2); Basophils % (auto) 0.8 % (0.0-2.0); Eosinophils # (auto) 0.3 10 ^3/uL (0-0.8); Eosinophils % (auto) 4.7 % (0.0-7.0); Hematocrit 38.4 % (41.0-53.0); Hemoglobin 12.9 g/dL (13.5-17.5); Lymphocytes # (auto) 2.2 10 ^3/uL (0.4-5.4); Mean Corpuscular Hemoglobin 27.8 pg (28.0-32.0); Mean Corpuscular Hgb Conc. 33.7 g/dL (32.0-36.0); Mean Corpuscular Volume 82.6 fL (80.0-100.0); Monocytes # (auto) 0.9 10 ^3/uL (0-1.3); Monocytes % (auto) 13.2 % (0.0-12.0); Neutrophils # (auto) 3.1 10 ^3/uL (1.6-8.6); Neutrophils % (auto) 47.3 % (37.0-80.0); Nucleated Red Blood Cells % 0.2 %; Red Blood Cells 4.65 10^6/uL (4.5-5.90); Red Cell Distribution Width 13.3 % (11.8-14.3); White Blood Cell 6.6 10^3/uL (4.4-10.8)
[2023-05-03 04:53] LABS: Alanine Aminotransferase 78 U/L (7-40); Albumin 4.3 g/dL (3.2-4.8); Alkaline Phosphatase 89 U/L (46-116); Anion Gap 9 (5-15); Aspartate Aminotransferase 41 U/L (13-40); BUN/Creatinine Ratio 12.2 (10.0-20.0); Blood Urea Nitrogen 11 mg/dL (9-23); Calcium 9.4 mg/dL (8.5-10.1); Carbon Dioxide 28 mmol/L (20-30); Chloride 104 mmol/L (98-107); Glucose 106 mg/dL (74-106); Potassium 3.5 mmol/L (3.5-5.1); Sodium 141 mmol/L (136-145)
[2023-05-03 04:54] LABS: Bilirubin, Total 1.1 mg/dL (0.2-1.0); Total Protein 7.5 g/dL (5.7-8.2)
[2023-05-03 05:14] LABS: Magnesium 1.5 mg/dL (1.6-2.6)
[2023-05-03] MEDS: MEROPENEM 1GM IVPB 100 ML IV SCH ×3 (05:20→21:42)
[2023-05-03] MEDS: levETIRAcetam 500 MG TAB PO SCH ×2 (09:52→21:28)
[2023-05-03] MEDS: SODIUM CHLOR 0.9% PF (SALINE LOCK) 10ML VIAL/SYR IV SCH ×2 (09:52→21:32)
[2023-05-03] MEDS: lamoTRIgine 100 MG TAB NG SCH ×2 (09:52→21:29)
[2023-05-03] MEDS: levoFLOXacin 750MG 150 ML IV SCH ×2 (09:52→10:00)
[2023-05-03] MEDS: amLODIPine BESYLATE 5 MG TAB PO SCH (09:53)
[2023-05-03] MEDS: HEPARIN SODIUM (PORCINE) 5000 UNITS/ML 1ML VIAL SC SCH ×2 (10:00→21:31)
[2023-05-03] MEDS ORDERED: MAGNESIUM SULFATE 1GM/100ML 100 ML IV ONE (11:29)
[2023-05-03] MEDS: MAGNESIUM SULFATE 1GM/100ML 100 ML IV SCH ×2 (11:36→12:27)
[2023-05-03] MEDS: MELATONIN 5 MG TAB PO SCH (21:29)
[2023-05-04 05:26] VITALS: BP 130/71; PULSE 91; RESP 18; TEMP 99.1; O2SAT 100
[2023-05-04] MEDS: MEROPENEM 1GM IVPB 100 ML IV SCH (06:03)
[2023-05-04 06:40] LABS: Basophils # (auto) 0.1 10 ^3/uL (0-0.2); Basophils % (auto) 1.1 % (0.0-2.0); Eosinophils # (auto) 0.2 10 ^3/uL (0-0.8); Eosinophils % (auto) 3.7 % (0.0-7.0); Hematocrit 41.2 % (41.0-53.0); Hemoglobin 14.1 g/dL (13.5-17.5); Lymphocytes # (auto) 2.2 10 ^3/uL (0.4-5.4); Lymphocytes % (auto) 34.4 % (10.0-50.0); Mean Corpuscular Hemoglobin 28.2 pg (28.0-32.0); Mean Corpuscular Hgb Conc. 34.2 g/dL (32.0-36.0); Mean Corpuscular Volume 82.6 fL (80.0-100.0); Monocytes # (auto) 0.9 10 ^3/uL (0-1.3); Monocytes % (auto) 14.8 % (0.0-12.0); Neutrophils # (auto) 2.9 10 ^3/uL (1.6-8.6); Nucleated Red Blood Cells % 0.2 %; Red Blood Cells 4.98 10^6/uL (4.5-5.90); Red Cell Distribution Width 13.5 % (11.8-14.3); White Blood Cell 6.3 10^3/uL (4.4-10.8)
[2023-05-04 09:00] VITALS: BP 123/81; PULSE 104; RESP 20; TEMP 98.3; O2SAT 94
[2023-05-04] MEDS: levETIRAcetam 500 MG TAB PO SCH (09:16)
[2023-05-04] MEDS: amLODIPine BESYLATE 5 MG TAB PO SCH (09:17)
[2023-05-04] MEDS: HEPARIN SODIUM (PORCINE) 5000 UNITS/ML 1ML VIAL SC SCH (09:20)
[2023-05-04] MEDS: levoFLOXacin 750MG 150 ML IV SCH (09:59)
[2023-05-04] MEDS: SODIUM CHLOR 0.9% PF (SALINE LOCK) 10ML VIAL/SYR IV SCH (10:00)
[2023-05-04] MEDS: lamoTRIgine 100 MG TAB NG SCH (10:00)
[2023-05-04] MEDS ORDERED: LEVE100012 PO (11:42)
[2023-05-04 12:41] VITALS: BP 128/72; TEMP 36.8
[2023-05-04 13:00] VITALS: BP 134/89; PULSE 100; RESP 19; TEMP 98; O2SAT 99
== END 2023-05-04 13:30 | disposition home or self-care (01) | DRG 720 ==
LOC: ER 23:17 → TELE 04-24 05:14 → ICU WEST 04-24 09:32 → TELE-WESTW 05-03 11:32
PROVIDERS: ADMIT Nurse Practitioner Family; ATTEND Internal Medicine Geriatric Medicine
PROC: 5A1955Z Respiratory Ventilation, Greater than 96 Consecutive Hours (ICD-10-PCS; principal; 2023-04-23)
PROC: 0BH17EZ Insertion of Endotracheal Airway into Trachea, Via Natural or Artificial Opening (ICD-10-PCS; 2023-04-23)
PROC: 02HV33Z Insertion of Infusion Device into Superior Vena Cava, Percutaneous Approach (ICD-10-PCS; 2023-04-24)
PROC: B548ZZA Ultrasonography of Superior Vena Cava, Guidance (ICD-10-PCS; 2023-04-24)
DX: A41.9 Sepsis, unspecified organism (principal); J96.01 Acute respiratory failure with hypoxia; N17.0 Acute kidney failure with tubular necrosis; J69.0 Pneumonitis due to inhalation of food and vomit; G93.41 Metabolic encephalopathy; E87.20 Acidosis, unspecified; J15.9 Unspecified bacterial pneumonia; G40.901 Epilepsy, unspecified, not intractable, with status epilepticus; E86.0 Dehydration; J98.11 Atelectasis; E66.01 Morbid (severe) obesity due to excess calories; E83.42 Hypomagnesemia; E87.6 Hypokalemia; I10 Essential (primary) hypertension; Z68.34 Body mass index [BMI] 34.0-34.9, adult; Z83.3 Family history of diabetes mellitus; Z91.148 Patient's other noncompliance with medication regimen for other reason; Z79.899 Other long term (current) drug therapy; R73.9 Hyperglycemia, unspecified
CPT/HCPCS: 31500; 36415; 36569; 36600; 70450; 71045; 74018; 80053; 80164; 80185; 80307; 80320; 81001; 82542; 82550; 82570; 82805; 83036; 83605; 83735; 84100; 84156; 84300; 85007; 85025; 85027; 85610; 85730; 87040; 87070; 87081; 87086; 87205; 93005; 94002; 94003; 95819; 96361; 96365; 96375; 99291; A4565; G0378; J0692; J0696; J1956; J2185; J2250; J2405; J2704; J3480; J3490; J7060